=== PATIENT | female | born 1985 | race Caucasian/White ===

== ENCOUNTER → 2016-12-19 | Emergency (ER) | payer OTHER ==
[~2016-12-19] MED LIST: Sodium Chloride 0.9% 1,000 ML IV SCH
[2016-12-19 16:50] VITALS: BP 132/77; PULSE 90; RESP 16; TEMP 98; O2SAT 100
--- NOTE | 2016-12-19 18:05 | ED PDOC ---
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 Pt states that the cramping had started approx 3 days ago and has increased in frequency. The cramps would come every hour and stay for about a minute and now they are occurring every 15- 20 mins and lasting for the same amount of time. The intensity of the abdominal cramping has stayed the same and is rated at a 6/ 10 in intensity and is achy in quality. Pt denied any vaginal bleeding, vaginal discharge, or hematuria. Pt denied fever, chills, sob, chest pains, n/v/d/c or urinary symptoms. PMH: denied PSH: denied SHx: lives in [place], denied tobacco/etoh/illicit drug abuse, LMP 07/16/16 Meds: vitamins Allergies: NKDA CALENDER ROLL PRESS OPERATOR: Dr. Novak ([place]) (Marcus Loza) Past Medical History - Psychiatric Hx Psychophysiologic Disorder: No Hx Substance Use: No <Marcus Loza - Last Filed: 12/19/16 17:59> Family/Social History Family/Social History: No Known Family HX Smoking Status: Never Smoked Hx Alcohol Use: No Hx Substance Use: No <Marcus Loza - Last Filed: 12/19/16 17:59> Allergies/Home Meds <Marcus Loza - Last Filed: 12/19/16 17:59> <Jasmeet Sellers DO - Last Filed: 12/19/16 18:20> Allergies/Adverse Reactions: Allergies No Known Allergies Allergy (Verified 12/19/16 16:46) Home Medications: Home Meds Medication Instructions Recorded Confirmed Multivit/Folic Acid/I 1 tab PO DAILY 12/19/16 12/19/16 [] Review of Systems - Review of Systems Constitutional: Normal Eyes: Normal ENT: Normal Respiratory: Normal Cardiovascular: Normal Gastrointestinal: Abdominal Pain (cramping) Genitourinary Female: Normal. absent: Dysuria, Hematuria, Vaginal Bleeding, Vaginal Discharge Musculoskeletal: Normal Skin: Normal Neurological: Normal Endocrine: Normal Hemo/Lymphatic: Normal Psychiatric: Normal <Marcus Loza - Last Filed: 12/19/16 17:59> Physical Exam Temperature: Afebrile Blood Pressure: Normal Pulse: Regular Respiratory Rate: Normal Appearance: Positive for: Well-Appearing, Non-Toxic, Comfortable Pain Distress: None Mental Status: Positive for: Alert and Oriented X 3 - Systems Exam Head: Present: Atraumatic, Normocephalic Pupils: Present: PERRL Extroacular Muscles: Present: EOMI Conjunctiva: Present: Normal Mouth: Present: Moist Mucous Membranes Neck: Present: Normal Range of Motion Respiratory/Chest: Present: Clear to Auscultation, Good Air Exchange. No: Respiratory Distress, Accessory Muscle Use Cardiovascular: Present: Regular Rate and Rhythm, Normal S1, S2. No: Murmurs Abdomen: Present: Normal Bowel Sounds. No: Tenderness, Distention, Peritoneal Signs Back: Present: Normal Inspection Upper Extremity: Present: Normal Inspection. No: Cyanosis, Edema Lower Extremity: Present: Normal Inspection. No: Edema Neurological: Present: GCS=15, CN II-XII Intact, Speech Normal Skin: Present: Warm, Dry, Normal Color. No: Rashes Psychiatric: Present: Alert, Oriented x 3, Normal Insight, Normal Concentration <Marcus Loza - Last Filed: 12/19/16 17:59> Vital Signs Temp Pulse Resp BP Pulse Ox 12/19/16 16:47 98.0 F 90 16 132/77 100 Medical Decision Making Reassessment Condition: Re-examined <Marcus Loza - Last Filed: 12/19/16 17:59> <Jasmeet Sellers DO - Last Filed: 12/19/16 18:20> ED Course and Treatment: 12/19/16 18:06 31 F with no significant PMH presented to [facility] with complaints of abdominal cramping. Pt is 20 wks . Last US was 12/05/16 demonstrating normal anatomy, and normal . - CBC - CMP -IVF - Urinalysis - UCX - heart rate (155bpm) 12/19/16 18:09 Spoke with Pt's CALENDER ROLL PRESS OPERATOR and had Medical records faxed. Pt was made aware of the possibility of needing to be transferred to a facility with a labor and delivery unit. Pt was encouraged to coordinate transfer via EMS. However, pt has decided to leave AMA, and have support system transfer the pt to the nearest hospital with a L&D unit. The patient is choosing to leave against medical advice. I have personally explained to the patient that choosing to do so may result in permanent bodily harm or . I have discussed at great length that without further evaluation and monitoring there may be unforeseen circumstances and/or deterioration causing permanent bodily harm or as a result of their choice. The patient is alert, oriented, and shows the mental capacity to make clear decisions regarding the patients health care at this time. The patient continues to wish to leave against medical advice. The patient has been advised that they should return to the emergency room immediately if they change their mind at any time, or if their condition begins to change or worsen in any way. (Marcus Loza) - Medication Orders Current Medication Orders: Sodium Chloride (Sodium Chloride 0.9%) 1,000 mls @ 100 mls/hr IV .Q10H ANGELA Disposition/Present on Arrival - Present on Arrival Any Indicators Present on Arrival: No History of DVT/PE: No History of Uncontrolled Diabetes: No Urinary Catheter: No History of Decub. Ulcer: No History Surgical Site Infection Following: None - Disposition Have Diagnosis and Disposition been Completed?: No Disposition Time: 18:00 <Marcus Loza - Last Filed: 12/19/16 17:59> - Present on Arrival Any Indicators Present on Arrival: No History of DVT/PE: No History of Uncontrolled Diabetes: No Urinary Catheter: No History of Decub. Ulcer: No <Jasmeet Sellers DO - Last Filed: 12/19/16 18:20> - Disposition Diagnosis: Abdominal cramping, Disposition: AGAINST MEDICAL ADVICE Patient Problems: Current Active Problems Problem Status Diagnosed Abdominal cramping Acute Condition: UNKNOWN
== END | disposition left against medical advice (07) ==
LOC: ED 16:20
DX: O26.92 Pregnancy related conditions, unspecified, second trimester (principal); Z3A.22 22 weeks gestation of pregnancy; R10.9 Unspecified abdominal pain